=== PATIENT | male | born 1990 | race Caucasian/White ===

== ENCOUNTER 2017-10-31 18:40 | Emergency (ER) | payer BC, SELFPAY ==
[2017-10-31 18:42] VITALS: BP 118/64; PULSE 99; RESP 16; TEMP 36.6; O2SAT 99; BMI 45.8
--- NOTE | 2017-10-31 19:40 | ED.DCSUM_ITS ---
- ER Visit Summary Date of Service: 10/31/17 Chief Complaint: [] Right lower extremity splinter foreign body History of Present Illness: The patient is a 27 M [] he slipped today and bumped into a palate suffered a small splinter to the right lateral lower leg he removed part of it feels some splinter still left in his leg he has no other complaints his tetanus status up-to-date he has no history of immunocompromising disorder diabetes Physical Examination: [] Circular 1 cm, area to the right lateral tib-fib region that he has been picking at. He feels if there is a splinter in this region. His tremor and exam is otherwise unremarkable full range of motion at the hip knee tib-fib ankle and foot I do not feel any obvious foreign body there is no signs of infection drainage warmth the foot exam is otherwise unremarkable Test Results: [] Emergency Department Course and Treatment: [] The patient we could x-ray the area we could apply some anesthetic and try to apply elliptical incision and gently probe it he declined that I explained the concept of delayed injury or infection etc. the fact we need to follow-up and he would prefer to do this as an outpatient he will be started on Keflex and is referred to Dr. Frank Barr he will return for change in symptoms Treatment Plan: [] Disposition: [] Stable home Impression: [] Certain for splinter foreign body right lateral leg This note was generated with [employer] dictation software. It may contain incorrect words, spelling, and punctuation that were not noted in review of the chart prior to signing ED Disposition - Plan for ED Patient: Chief Complaint: Foreign Body Referrals: Chris Barber MD [Primary Care Provider] -
--- NOTE | 2017-10-31 19:40 | ED.DEP ---
ED Disposition - Plan for ED Patient: Chief Complaint: Foreign Body Instructions: ED Foreign Body Soft Tissue Removed Prescriptions: Cephalexin [Keflex] 500 mg PO Q6 #40 cap Referrals: Chris Barber MD [Primary Care Provider] - Frank Barr DO [STAFF PHYSICIAN] - Additional Instructions: Foreign body was not removed you need to follow-up with Dr. Barr orthopedics return for signs of infection or change in symptoms
== END 2017-10-31 20:04 | disposition home or self-care (01) ==
PROVIDERS: Emergency Provider Emergency Medicine; Family Provider Family Medicine; PCP Family Medicine
DX: S80.851A Superficial foreign body, right lower leg, initial encounter (principal); W45.8XXA Other foreign body or object entering through skin, initial encounter; Y93.01 Activity, walking, marching and hiking; Y92.89 Other specified places as the place of occurrence of the external cause; Y99.8 Other external cause status
CPT/HCPCS: 99282

== ENCOUNTER 2020-08-16 19:02 | Emergency (ER) | payer BC, SELFPAY ==
[2020-08-16 19:02] VITALS: BP 138/87; PULSE 85; RESP 16; TEMP 36.6; O2SAT 99
--- NOTE | 2020-08-16 19:10 | ED.RN ---
PT OBSERVED LEAVING DEPARTMENT, [employer] SUPER[employer]OR WHO AMBULATED PT BACK TO ROOM STATES PT DID NOT WANT TO STAY.
== END 2020-08-16 19:17 | disposition left against medical advice (07) ==
LOC: ED 19:14
PROVIDERS: Emergency Provider Emergency Medicine; PCP Family Medicine
DX: Z53.21 Procedure and treatment not carried out due to patient leaving prior to being seen by health care provider (principal)